=== PATIENT | male | born 1975 | race Caucasian/White ===

== ENCOUNTER 2016-10-12 21:40 | Emergency (ER) | payer SELFPAY ==
[2016-10-12 22:13] VITALS: TEMP 98.9; BMI 25.8
[2016-10-12 22:53] LABS: RBC/URINE 0-2 (0-2); WBC/URINE 0-2 (0-2)
[2016-10-12 22:54] LABS: LEUKOCYTES/URINE NEG (NEGATIVE); NITRITE/URINE NEG (NEGATIVE); URINE OCCULT BLOOD NEG (NEG/TRACE)
--- NOTE | 2016-10-12 23:09 | EDPRACDOC ---
- General Information Chief Complaint: Male Urogenital Problems Stated Complaint: DIFFICULTY URINATING Time Seen by Provider: 10/12/16 22:19 Information Source: Patient Home Medications: Home Medications Tamsulosin HCl [Flomax] 0.4 mg PO DAILY #30 cap 10/13/16 Allergies/Adverse Reactions: Allergies Allergy/AdvReac Type Severity Reaction Status Date / Time codeine Allergy Rash-Genera Verified 04/01/16 21:13 lized - History of Present Illness HPI: PT PRESENTS WITH 1 MONTH OF DIFFICULTY INITIATING URINATION. THERE IS ASSOCIATED LOWER ABDOMINAL AND LOWER LUMBAR BACK PAIN. 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 Denies: Vomiting ED Past Medical History - History Reviewed Yes Nurses notes reviewed and agree except as marked - Patient Medical History GI/ History: Reports: Gastroesophageal Reflux Psychological History: Denies: Depression - Social Medical History Smoking Status: Heavy tobacco smoker (5 or more cigarettes/day or daily pipe/ cigar) Lives In: Home EDM Review of Systems - Review of Systems ROS Negative Except as Marked: Yes All systems reviewed and were negative except as marked Constitutional: negative: Fever Respiratory: negative: Shortness of Breath Cardiovascular: negative: Chest Pain Gastrointestinal: Pain. negative: Vomiting Genitourinary: Frequency, Other (URINARY HESITANCY). negative: Dysuria - Physical Exam Constitutional: Alert Oriented to: Time, Person, Place Last recorded Vital Signs: Last Vital Signs Temp 98.9 F 10/12/16 22:09 Pulse 114 10/12/16 22:09 Resp 20 10/12/16 22:09 BP 155/89 10/12/16 22:09 Pulse Ox 98 10/12/16 22:09 Oxygen Pulse Oxygen Saturation 98 O2 Device Room Air Oxygen Flow Rate Fraction of Inspired Oxygen ( FIO2) - HEENT Head: negative: Deformity, Laceration Eye Exam: negative: Conjunctival Injection, Pale Conjunctiva Oropharynx: negative: Membranes Dry Nose: negative: Congestion, Discharge Neck: negative: Limited ROM - Respiratory/Cardiovascular Respiratory: Normal - CTA. negative: Accessory Muscle Use, Diminished, Tachypnea Cardiovascular: Tachycardia. negative: Bradycardia, Irregular - GI Auscultation: Normal Palpation: Normal Tenderness: Non tender - Musculoskeletal Extremities: Radial Pulse (PALPABLE) - Integumentary Skin: Warm, Dry. negative: Rash - Neurologic Memory Impaired: Normal Motor Function: Normal Mood Description: Anxious, Appropriate Thought: Coherent Perception: Normal - Re-evaluation Re-evaluation 1 Re-evaluation Time: 00:01 NO WHITE COUNT OR FEVER. NO RECTAL PAIN. SUSPECT BPH. WILL TREAT SUCH AND HAVE ENCOURAGED HIM TO FOLLOW UP WITH A PCP OR UROLOGY. - Results 10/12/16 23:21 10/12/16 23:21 Urine Color Pale yell0w 10/12/16 22:35 Urine Clarity Clear 10/12/16 22:35 Urine pH 5.0 (5.0-8.0) 10/12/16 22:35 Ur Specific [place] 1.005 (1.003-1.035) 10/12/16 22:35 Urine Protein Neg (NEG/TRACE) 10/12/16 22:35 Urine Glucose (UA) Neg (NEGATIVE) 10/12/16 22:35 Urine Ketones Neg (NEGATIVE) 10/12/16 22:35 Urine Occult Blood Neg (NEG/TRACE) 10/12/16 22:35 Urine Nitrite Neg (NEGATIVE) 10/12/16 22:35 Urine Bilirubin Neg (NEGATIVE) 10/12/16 22:35 Urine Urobilinogen 0.2 MG/DL (0-1) 10/12/16 22:35 Ur Leukocyte Esterase Neg (NEGATIVE) 10/12/16 22:35 Urine RBC 0-2 (0-2) 10/12/16 22:35 Urine WBC 0-2 (0-2) 10/12/16 22:35 Urine Bacteria Few (NEG/FEW) 10/12/16 22:35 Lab Results 10/12/16 22:35 Urine Color Pale yell0w Urine Clarity Clear Urine pH 5.0 Ur Specific [place] 1.005 Urine Protein Neg Urine Glucose (UA) Neg Urine Ketones Neg Urine Occult Blood Neg Urine Nitrite Neg Urine Bilirubin Neg Urine Urobilinogen 0.2 Ur Leukocyte Esterase Neg Urine RBC 0-2 Urine WBC 0-2 Urine Bacteria Few Decision Time to Discharge: 00:01 - Departure Yes I personally saw and evaluated the patient. Disposition: Home Condition: Stable Final Diagnosis: Urinary hesitancy Instructions: Benign Prostatic Hypertrophy (ED) Education/Counseling Given To: Patient Education/Counseling Given Regarding: Diagnosis, Treatment, Prognosis, Follow Up Referrals: None,No Provider [Primary Care Provider] - One Week Aubrey Espino MD [Staff Physician] - Call for Appointment Zac Swanson MD [Staff Physician] - As Needed Prescriptions: Tamsulosin HCl [Flomax] 0.4 mg PO DAILY #30 cap
[2016-10-12 23:34] LABS: AUTOMATED EOSINOPHIL 1.9 % (0-5); AUTOMATED LYMPH 37.3 % (17-44); AUTOMATED MONOCYTE 5.9 % (3-10); AUTOMATED NEUTROPHIL 53.9 % (45-76)
[2016-10-12 23:44] LABS: BLOOD UREA NITROGEN 13 MG/DL (9-20); CALCULATED OSMOLALITY 285 MOs/Kg (270-290); CHLORIDE 114 mEq/L (98-107); GLUCOSE 81 MG/DL (70-99); SODIUM LEVEL 149 mEq/L (137-146); TOTAL PROTEIN 7.7 G/DL (6.3-8.2)
[2016-10-12 23:51] LABS: CALCIUM 9.4 MG/DL (8.4-10.2)
[2016-10-12] MEDS ORDERED: TAMSULOSIN HCL 0.4 MG CAP PO ONE (23:57)
[2016-10-13 00:13] VITALS: BP 127/83; PULSE 98
== END 2016-10-13 00:21 | disposition home or self-care (01) ==
LOC: ED 21:40
DX: R39.11 Hesitancy of micturition (principal)
CPT/HCPCS: 36415; 80053; 81001; 85025; 99283; J3490